=== PATIENT | male | born 1955 | race African-American/Black ===

== ENCOUNTER 2017-01-15 01:30 | Inpatient (IN) ==
--- NOTE | 2017-01-15 03:04 | Emergency Department Note ---
Colt Cifuentes Manpreet, am scribing for, and in the presence of, Neil Richard MD 02:58. Jose Manuel Cifuentes Robert M, MD, personally performed the services described in this documentation, ascribed by Lul Gregory in my presence, and it is both accurate and complete . Arrival - Arrival Chief Complaint: Non-Specific Stated Complaint: feel weak no taste in mouth loosing weight ED Nursing Triage Note: patient states for one week he has had no taste in his mouth, decreased appetite, nausea and constipation. Mode of Arrival: Ambulatory Limitations: No Limitations Source: Patient - History of Present Illness HPI Narrative: Pt is a 61 y/o male who presents to the ED with CC of dry mouth, weight loss, for the past week. Pt also c/o blurry vision and has only been eating ice. Pt denies fever but states an increase in urination frequency. No other pains/ complaints reported to ED. Onset (ago): week(s) Consistency: constant Severity: mild, moderate Severity scale (1-10): 3 Allergies/Adverse Reactions: Allergies Allergy/AdvReac Type Severity Reaction Status Date / Time No Known Allergies Allergy Verified 01/15/17 01:48 Home Medications: Home Medications Medication Instructions Recorded Confirmed Type Aspirin [Ecotrin] 81 mg PO DAILY 01/15/17 01/15/17 History Furosemide Tab [Lasix Tab] 80 mg PO DAILY 01/15/17 01/15/17 History Review of System - Review of System 12 point system: reviewed and no additional remarkable complaints except as stated - Review of System Constitutional: Present: weight loss, other (Loss of appetite). Absent: chills , diaphoresis, fever Eyes: Present: other (Blurry vision) Head/Ears/Nose/Throat: Present: other (Dry mouth) Respiratory: Absent: cough, respiratory distress Cardiovascular: Absent: chest pain Gastrointestinal: Absent: abdominal pain, nausea, vomiting Genitourinary male: Present: frequency. Absent: dysuria Medical,Surgical,& Family Hx - Medical History Cardio: History of: Hypertension - Social History Smoking Status: Never smoker Frequency of Alcohol Use: Occasionally Type of Drug Use: None Exam Vital Signs: Vital Signs Temperature 97.0 F L 01/15/17 01:43 Pulse Rate 84 01/15/17 01:43 Respiratory Rate 01/15/17 01:43 Blood Pressure 100/82 01/15/17 01:43 O2 Sat by Pulse Oximetry 97 01/15/17 01:43 - General General appearance: alert, in no apparent distress - Head Head exam: Present: atraumatic, normocephalic, normal inspection - Eye Eye exam: Present: normal appearance, PERRL, EOMI - ENT ENT exam: Present: normal exam, normal oropharynx, mucous membranes dry, TM's normal bilaterally. Absent: mucous membranes moist - Neck Neck exam: Present: normal inspection, full ROM, trachea midline. Absent: tenderness - Chest Chest inspection: Present: normal inspection, symmetric chest wall rise. Absent : tenderness - Respiratory Respiratory exam: Present: normal lung sounds bilaterally. Absent: accessory muscle use, respiratory distress - Cardiovascular Cardiovascular exam: Present: regular rate, normal rhythm, normal heart sounds. Absent: murmur, rubs, gallop - Abdominal Exam Abdominal exam: Present: soft, normal bowel sounds. Absent: distention, tenderness - Extremities Exam Extremities exam: Present: normal inspection, full ROM. Absent: tenderness - Back Exam Back exam: Present: normal inspection, full ROM. Absent: tenderness - Neurological Exam Neurological exam: Present: alert, oriented X3, CN II-XII intact - Psychiatric Psychiatric exam: Present: normal affect, normal mood - Skin Skin exam: Present: warm, dry, intact, normal color. Absent: pallor Course - Consultations Consultation #1: Dr. Isidro Monsalve will evaluate and admit the patient. Time: 04:25 Results - Labs CBC & BMP: 01/15/17 03:20 01/15/17 03:20 Lab Results: I have reviewed the patients labs Labs: Lab Results WBC 8.1 T/CUMM (4-12) 01/15/17 03:20 RBC 5.60 MC/CUMM (3.8-5.5) H 01/15/17 03:20 Hgb 14.1 GM/DL (14.0-18.0) 01/15/17 03:20 Hct 40.2 VOL% (42.0-52.0) L 01/15/17 03:20 MCV 71.8 FL (87-102) L 01/15/17 03:20 MCH 25 PG (27-34) L 01/15/17 03:20 MCHC 35.1 GM/DL (32-36) 01/15/17 03:20 RDW 13.9 % (9.3-17.3) 01/15/17 03:20 Plt Count 234 T/CUMM (130-400) 01/15/17 03:20 MPV 12.8 FL (9.6-12.0) H 01/15/17 03:20 Neut % (Auto) 68.2 % (38.7-73.9) 01/15/17 03:20 Lymph % (Auto) 23.3 % (21.2-54.2) 01/15/17 03:20 Hughes % (Auto) 6.9 % (1.7-12.7) 01/15/17 03:20 Eos % (Auto) 1.0 % (0.00-10.9) 01/15/17 03:20 Baso % (Auto) 0.2 % (0.0-0.8) 01/15/17 03:20 Neut # (Auto) 5.6 10*3/uL (1.4-7.4) 01/15/17 03:20 Lymph # (Auto) 1.9 10*3/uL (1.4-4.0) 01/15/17 03:20 Hughes # (Auto) 0.6 10*3/uL (0.11-0.8) 01/15/17 03:20 Eos # (Auto) 0.1 10*3/uL (0.0-0.87) 01/15/17 03:20 Baso # (Auto) 0.0 10*3/uL (0.0-0.2) 01/15/17 03:20 Immature Gran % 0.4 % 01/15/17 03:20 Nucleated RBC % 0.0 /100WBC 01/15/17 03:20 Immature Gran # 0.03 # 01/15/17 03:20 Nucleated RBCs # 0.00 10*3/uL 01/15/17 03:20 Sodium 124 MMOL/L (136-145) L 01/15/17 03:20 Potassium 6.1 MMOL/L (3.5-5.1) H* 01/15/17 03:20 Chloride 86 MMOL/L (98-107) L 01/15/17 03:20 Carbon Dioxide 25 MMOL/L (21-32) 01/15/17 03:20 Anion Gap 19.1 MMOL/L (5.0-15.0) H 01/15/17 03:20 BUN 42 MG/DL (7-18) H 01/15/17 03:20 Creatinine 2.40 MG/DL (0.70-1.30) H 01/15/17 03:20 GFR Calculation 35 ML/MIN 01/15/17 03:20 BUN/Creatinine Ratio 17.00 RATIO (6.00-20.00) 01/15/17 03:20 Glucose 1141 MG/DL (74-106) H* 01/15/17 03:20 Hemoglobin A1c 11.2 % (4.2-6.3) H 01/15/17 03:20 Calculated Osmolality 317.6 MOS/KG (273-304) H 01/15/17 03:20 Calcium 9.8 MG/DL (8.5-10.1) 01/15/17 03:20 Magnesium 3.5 MG/DL (1.8-2.4) H 01/15/17 03:20 Urine Color Colorless (Yellow) 01/15/17 03:30 Urine Appearance Clear (Clear) 01/15/17 03:30 Urine pH 5.0 (4.5-8.0) 01/15/17 03:30 Ur Specific Kidder 1.022 (1.001-1.035) 01/15/17 03:30 Urine Protein Negative MG/DL 01/15/17 03:30 Urine Glucose (UA) >=500 mg/dL (Negative) 01/15/17 03:30 Urine Ketones 5 mg/dL (Negative) 01/15/17 03:30 Urine Blood Small mg/dL (Negative) 01/15/17 03:30 Urine Nitrate Negative (Negative) 01/15/17 03:30 Urine Bilirubin Negative mg/dL (Negative) 01/15/17 03:30 Urine Urobilinogen < 2.0 EU/DL (0.2-1.0) H 01/15/17 03:30 Urine Leukocytes Negative Mike/ul (Negative) 01/15/17 03:30 Urine RBC <1 /HPF (0-4) 01/15/17 03:30 Urine WBC <1 /HPF (0-6) 01/15/17 03:30 Ur Squamous Epith Cells Occasional /HPF (0-10) 01/15/17 03:30 Ur Culture Indicated? Not indicated 01/15/17 03:30 Urine Opiates Screen Negative (Negative) 01/15/17 03:20 Ur Barbiturates Screen Negative (Negative) 01/15/17 03:20 Ur Phencyclidine Scrn Negative (Negative) 01/15/17 03:20 U Amphetamine/Methamph Negative (Negative) 01/15/17 03:20 U Benzodiazepines Scrn Negative (Negative) 01/15/17 03:20 U Cocaine Metab Screen Negative (Negative) 01/15/17 03:20 U Cannabinoids Screen Negative (Negative) 01/15/17 03:20 Disposition Clinical Impression: New onset type 1 diabetes mellitus, uncontrolled, Hyperkalemia Case discussed with: patient, patient's family Condition: Stable
[2017-01-15 03:38] LABS: Basophils % 0.2 % (0.0-0.8); Eosinophils # 0.1 10*3/uL (0.0-0.87); Hematocrit 40.2 VOL% (42.0-52.0); Hemoglobin 14.1 GM/DL (14.0-18.0); Immature Granulocytes % 0.4 %; Immature Granulocytes Absolute 0.03 #; Lymphocytes # 1.9 10*3/uL (1.4-4.0); Lymphocytes % 23.3 % (21.2-54.2); Mean Corpuscular HGB Conc 35.1 GM/DL (32-36); Mean Corpuscular Hemoglobin 25 PG (27-34); Mean Corpuscular Volume 71.8 FL (87-102); Mean Platelet Volume 12.8 FL (9.6-12.0); Monocytes # 0.6 10*3/uL (0.11-0.8); Monocytes % 6.9 % (1.7-12.7); Neutrophils # 5.6 10*3/uL (1.4-7.4); Neutrophils % 68.2 % (38.7-73.9); Platelet Count 234 T/CUMM (130-400); Red Cell Distribution Width 13.9 % (9.3-17.3); White Blood Count 8.1 T/CUMM (4-12)
[2017-01-15 03:42] LABS: Apearance,Urine CLEAR (Clear); Bilirubin,Urine Negative (Negative); Blood, Urine Small mg/dL (Negative); Glucose,Urine (UA) >=500 mg/dL (Negative); Ketones,Urine 5 mg/dL (Negative); Nitrite,Urine Negative (Negative); Protein,Urine Negative; RBC,Urine <1 /HPF (0-4); Squamous Epithelial Cell,Urine Occasional /HPF (0-10); Urine Color Colorless (Yellow); Urine Specific Gravity 1.022 (1.001-1.035); Urine Urobilinogen < 2.0 EU/DL (0.2-1.0); WBC,Urine <1 /HPF (0-6)
[2017-01-15 03:48] LABS: Barbiturates Screen,Urine Negative (Negative); Benzodiazepines Screen,Urine Negative (Negative); Cannabinoid Screen,Urine Negative (Negative); Opiate Screen,Urine Negative (Negative); Phencyclidine Screen,Urine Negative (Negative)
[2017-01-15 04:10] LABS: Calcium 9.8 MG/DL (8.5-10.1); Magnesium 3.5 MG/DL (1.8-2.4)
[2017-01-15 04:13] LABS: Osmolality,Calculated 317.6 MOS/KG (273-304)
[2017-01-15 04:17] LABS: Potassium 6.1 MMOL/L (3.5-5.1)
[2017-01-15] MEDS ORDERED: SODIUM CHLORIDE 0.9% 1,000 ML IV STA (04:23)
[2017-01-15] MEDS ORDERED: INSULIN LISPRO 100 UNIT/ML SUBCUT STA (04:23)
[2017-01-15] MEDS ORDERED: INSULIN LISPRO 100 UNIT/ML SUBCUT ONE (04:31)
--- NOTE | 2017-01-15 04:44 | Hospitalist History & Physical ---
Assessment and Plan (1) Diabetes mellitus, new onset Status: Acute Current Visit: Yes (2) Hyperglycemia Status: Acute Current Visit: Yes (3) Hyperosmolar non-ketotic state in patient with type 2 diabetes mellitus Status: Acute Current Visit: Yes (4) History of prostate cancer Status: Acute Current Visit: Yes (5) Hyperkalemia Status: Acute Assessment and plan: Patient definitely has an elevated glucose. He has hyperkalemia and a has a bicarb 25. Most likely this is nonketotic hyperosmolar state. I am going to order a beta hydroxy butyrate to be complete. The quickest way to get this sugar under control will be unit admission with IV insulin infusion with generous IV fluids and serial BMPs. Once we have better control of his sugar he should be able to be transferred out of the unit and to the floor. Will get breastfeeding educator to talk with him. I do not have a recent creatinine. I found one from 2004 which is 12 years ago and he had a creatinine of 1.1. I feel that his creatinine will improve with hydration Current Visit: Yes History of Present Illness Chief complaint: Increased thirst and urination History of present illness: Mr. Becerra is a 61 year old male with past medical history significant for coronary artery disease and prostate cancer presents to our ER carlos. Patient reports for the last several weeks he just lost the taste of food. He reports not hungry. He reports that everything is does not taste right. He says that he is noticed an increase in urination. And is been eating a lot of ice. He has had some nausea. He came to our hospital for further evaluation patient was found to have an elevated glucose in the 1100 range. I was consulted to admit him through the emergency room Home Medications Medication Instructions Recorded Confirmed Type Aspirin [Ecotrin] 81 mg PO DAILY 01/15/17 01/15/17 History Furosemide Tab [Lasix Tab] 80 mg PO DAILY 01/15/17 01/15/17 History Allergies Allergy/AdvReac Type Severity Reaction Status Date / Time No Known Allergies Allergy Verified 01/15/17 01:48 Medical,Surgical,& Family Hx - Medical History Cardio: History of: CAD, Hypertension Genitourinary: History of: Prostate Problems - Surgical History Reproductive Surgeries: Surgical HX of;: Prostate Surgery - Family History Family History: Reports;: Family Hypertension - Social History Smoking Status: Never smoker Frequency of Alcohol Use: Occasionally Type of Drug Use: None 12 point system: reviewed and no additional remarkable complaints except as stated Exam - Constitutional Vitals: Period Temp Pulse Resp BP Sys/Johnson Pulse Ox Last 24 Hr 97.0 F-97.0 F 84-84 16-20 100-100/82-82 97 General appearance: normal weight - Head Head exam: Present: normal inspection - Eye Eye exam: Present: EOMI Pupils: Present: MARVEL - ENT ENT exam: Present: normal exam - Neck Neck exam: Present: normal inspection - Respiratory Respiratory exam: Present: clear to auscultation bilaterally - Cardiovascular Cardiovascular exam: Present: regular rate and rhythm - GI/Abdominal GI/Abdominal exam: Present: normal bowel sounds - Extremities Exam Extremities exam: Present: normal inspection - Back Exam Back exam: Present: normal inspection - Neurological Exam Neurological exam: Present: alert, oriented X3 - Psychiatric Psychiatric exam: Present: normal affect - Skin Skin exam: Present: normal color Results - Labs CBC & BMP: 01/15/17 03:20 01/15/17 03:20
[2017-01-15] MEDS ORDERED: SODIUM PHOSPHATE IV PRN (04:55)
[2017-01-15] MEDS ORDERED: SODIUM CHLORIDE 0.9% IV PRN (04:55)
[2017-01-15] MEDS ORDERED: DEXTROSE 50% 25 GM/50 ML VIAL IV PRN ×2 (04:55)
[2017-01-15] MEDS ORDERED: ALBUTEROL 2.5 MG/3 ML NEB RESP TX PRN (04:55)
[2017-01-15] MEDS ORDERED: INSULIN REGULAR 100 UNIT/ML IV ONE ×2 (04:55→10:48)
[2017-01-15] MEDS ORDERED: MAGNESIUM SULF RIDER 4 GM in PREMIX 1 EACH IV PRN (04:55)
[2017-01-15] MEDS ORDERED: SODIUM BICARB INJ 100 MEQ in STERILE WATER INJ 400 ML IV PRN (04:55)
[2017-01-15] MEDS ORDERED: MAGNESIUM SULF RIDER 2 GM in PREMIX 1 EACH IV PRN (04:55)
[2017-01-15] MEDS ORDERED: SODIUM CHLORIDE 0.9% 1,000 ML IV ONE (04:55)
[2017-01-15] MEDS: INSULIN REGULAR DRIP 100 ML IV SCH (05:58)
[2017-01-15 06:39] LABS: Magnesium 3.5 MG/DL (1.8-2.4); Phosphorous 4.4 MG/DL (2.5-4.9)
[2017-01-15] MEDS: SODIUM CHLORIDE 0.9% 1,000 ML IV SCH ×2 (06:55→08:57)
[2017-01-15 07:08] LABS: Basophils % 0.3 % (0.0-0.8); Eosinophils # 0.1 10*3/uL (0.0-0.87); Hematocrit 36.8 VOL% (42.0-52.0); Immature Granulocytes % 0.3 %; Immature Granulocytes Absolute 0.02 #; Lymphocytes # 1.9 10*3/uL (1.4-4.0); Lymphocytes % 26.4 % (21.2-54.2); Mean Corpuscular HGB Conc 35.3 GM/DL (32-36); Mean Corpuscular Hemoglobin 25 PG (27-34); Mean Corpuscular Volume 71.5 FL (87-102); Mean Platelet Volume 12.7 FL (9.6-12.0); Monocytes # 0.4 10*3/uL (0.11-0.8); Monocytes % 5.7 % (1.7-12.7); Neutrophils # 4.7 10*3/uL (1.4-7.4); Neutrophils % 66.3 % (38.7-73.9); Platelet Count 238 T/CUMM (130-400); Red Blood Count 5.15 MC/CUMM (3.8-5.5); Red Cell Distribution Width 13.6 % (9.3-17.3)
[2017-01-15 07:39] LABS: Calcium 9.2 MG/DL (8.5-10.1); Potassium 3.8 MMOL/L (3.5-5.1)
--- NOTE | 2017-01-15 07:40 | XRay Report ---
History: Shortness of breath Date: 01/15/2017 Study: Chest x-ray AP Comparison exam: January 09, 2011 The cardiac silhouette is upper normal in size. The patient is status post prior median sternotomy and cardiac valve replacement. The cardiac silhouette is not enlarged. There is no pulmonary vascular engorgement. A left subclavian transvenous pacemaker/defibrillator device is intact and unchanged. There is some minor linear scar or subsegmental atelectasis in the left lung base. There is no anne pneumonia or gross pleural effusion. Osseous structures are unchanged. Impression: Minimal platelike scar or subsegmental atelectasis left lung base. No definite acute process compared to the previous study PROCEDURE INTERPRETED AT [facility] DEPARTMENT OF RADIOLOGY Final Report Signed by: Dr. Lawanda Powell
[2017-01-15] MEDS: POTASSIUM CHLORIDE RIDER 10 MEQ in PREMIX 1 EACH IV PRN ×2 (07:57→08:57)
--- NOTE | 2017-01-15 08:47 | Event Note ---
Patient is admitted with new onset diabetes with an elevated blood sugar greater than 1000. He is responding well to IV fluids and IV insulin. Diabetic education has been in to see him already this morning. He feels better. We will continue ICU level care and IV insulin drip with hourly Accu-Cheks and routine treatment for HHNK per protocol. The case was discussed with the nursing staff at the bedside.
[2017-01-15] MEDS: ENOXAPARIN 40 MG/0.4 ML SYRINGE SUBCUT SCH (09:06)
[2017-01-15] MEDS ORDERED: SODIUM CHLORIDE 0.9% 1,000 ML IV SCH (09:56)
[2017-01-15 11:30] LABS: Calcium 8.4 MG/DL (8.5-10.1); Osmolality,Calculated 304.3 MOS/KG (273-304); Potassium 4.5 MMOL/L (3.5-5.1)
[2017-01-15] MEDS ORDERED: SODIUM CHLOR 0.45% KCL 20 MEQ 20 MEQ/1,000 ML BAG IV SCH (15:30)
[2017-01-15 16:25] LABS: Calcium 8.4 MG/DL (8.5-10.1); Potassium 4.5 MMOL/L (3.5-5.1)
[2017-01-15] MEDS ORDERED: GLUCAGON 1 MG VIAL IM PRN ×2 (16:30)
[2017-01-15] MEDS: SODIUM CHLORIDE 0.45% 1,000 ML IV SCH (16:47)
[2017-01-15] MEDS: INSULIN LISPRO 100 UNIT/ML SUBCUT SCH ×2 (17:17→20:26)
[2017-01-15] MEDS: glyBURIDE 2.5 MG TABLET PO SCH (17:55)
[2017-01-15] MEDS ORDERED: INSULIN GLARGINE 100 UNIT/ML SUBCUT SCH (21:00)
[2017-01-16] MEDS: SODIUM CHLORIDE 0.45% 1,000 ML IV SCH ×2 (00:11→08:15)
[2017-01-16 04:47] LABS: Magnesium 2.3 MG/DL (1.8-2.4); Phosphorous 2.5 MG/DL (2.5-4.9)
[2017-01-16 04:52] LABS: Albumin 3.2 G/DL (3.4-5.0); Bilirubin,Total 0.6 MG/DL (0.2-1.0); Calcium 8.6 MG/DL (8.5-10.1); Total Protein 6.3 G/DL (6.4-8.3)
[2017-01-16 04:53] LABS: Osmolality,Calculated 287.7 MOS/KG (273-304); Potassium 4.5 MMOL/L (3.5-5.1)
[2017-01-16] MEDS: INSULIN REGULAR DRIP 100 ML IV SCH (05:17)
--- NOTE | 2017-01-16 08:03 | Physician Query Form ---
CLICK EDIT DOCUMENT TO SELECT QUERY ANSWER --> OK --> SIGN Melanie Richard RN, CCDS Certified Clinical Supervising Film Or Videotape Editor W) [phone] (f) [phone] [email or web address] PROVIDERS: Make your selection(s) from the choices in EACH section by typing an "x" and enter comments in the comment section. Please use your independent medical judgment in providing your response. This request does not imply that any particular answer is desired or expected. CLINICAL INDICATORS: (Providers should not edit this section) The medical record indicates that the patient was admitted with a new onset of DM, creatinine of 2.40 on the that has decreased to 1.30 on the , GFR of 35 on the that has increased to 82 on the and the patient was bloused with 1,000 cc of fluid then started on NS infusion. Clarify which of the following most accurately represents the patient's renal status: ( X) Acute kidney injury (non-traumatic) ( ) Acute renal failure ( ) Acute renal failure with underlying Chronic Kidney Disease (CKD) - please provide stage below ( ) Acute renal failure with pathological renal lesion ( ) Acute renal failure with necrosis ( ) tubular ( ) medullary ( ) cortical ( ) CKD - please provide stage below ( ) End Stage Renal Disease ( ) Acute interstitial nephritis ( ) Hepatorenal syndrome ( ) Other, please specify: ( ) Clinically unable to determine Chronic Kidney Disease Stages Source: National Kidney Disease Foundation ( ) Stage I (eGFR > or = 90) ( ) Stage II (eGFR 60 - 89) ( ) Stage III (eGFR 30 - 59) ( ) Stage IV (eGFR 15 - 29) ( ) Stage V (eGFR < 15 or dialysis) COMMENTS: PLEASE ALSO DOCUMENT RESPONSE IN PROGRESS NOTES AND/OR DISCHARGE SUMMARY Use of terms such as suspected, likely, or probable (associated with a specific diagnosis that is being evaluated, monitored, or treated as if it exists) are acceptable and can be restated in the discharge summary if not ruled out. MTDD
[2017-01-16] MEDS: glyBURIDE 2.5 MG TABLET PO SCH (08:27)
[2017-01-16] MEDS: INSULIN LISPRO 100 UNIT/ML SUBCUT SCH ×2 (08:27→12:23)
[2017-01-16] MEDS: ENOXAPARIN 40 MG/0.4 ML SYRINGE SUBCUT SCH (08:44)
--- NOTE | 2017-01-16 10:08 | Discharge Summary ---
Hospital Course - Hospital Course Hospital Course: Mr. Becerra is a 61-year-old black male who was admitted to the hospital with new onset diabetes and a markedly elevated blood sugar greater than 1000. He was admitted to the intensive care unit for IV fluid hydration and IV insulin therapy. He was seen in consultation by diabetic education. He also had acute kidney injury with acute renal failure and elevated creatinine which is improved with IV fluid hydration and correction of his metabolic derangements related to his new onset diabetes. His hemoglobin A1c was greater than 11. He has been started on metformin and glyburide as well as Lantus at night. He has received diabetic education. He is being discharged home in stable condition to follow-up with a new primary care physician. He was given instructions regarding glucometer use. New prescriptions for Lantus, metformin, glyburide were given. The rest of his home medications were reviewed and reconciled. Patient is a full code. - Time spent with patient Time with patient DS: Greater than 30 minutes (Total discharge time for this patient, including [id number] time, clinical documentation, medication reconciliation, and discharge planning was 42 minutes.) Diagnosis - Discharge Diagnosis (1) Acute kidney injury Status: Resolved (2) Hypertension Status: Chronic (3) Cardiomyopathy Status: Chronic (4) Diabetes mellitus, new onset Status: Acute (5) Hyperosmolar non-ketotic state in patient with type 2 diabetes mellitus Status: Resolved Discharge Plan - Discharge Data Disposition: Disch To Home/Self Care Condition at Discharge: Stable Discharge Diet: diabetic diet Activity: resume usual activities as tolerated Hygiene: no restrictions Weight Bearing at Discharge: full weight bearing Contact your physician if you experience:: fever over 101, Nausea/Vomiting - Discharge Medications New Insulin Glargine [Lantus] 10 unit SUBCUT BEDTIME #100 unit glyBURIDE [Diabeta] 5 mg PO BID W/MEALS #60 tablet metFORMIN [Glucophage] 500 mg PO BID W/MEALS #60 tablet Continue Furosemide Tab [Lasix Tab] 80 mg PO DAILY Aspirin [Ecotrin] 81 mg PO DAILY - Follow Up or Referral - Forms/Instructions Additional Discharge Instructions: Follow-up with primary care physician in 1-2 weeks. Follow diabetic education instructions. Check blood sugars twice daily and as needed. The patient has other home medications that should be continued without change. He was unable to provide us with a list. Exam - Constitutional Vitals: Period Temp Pulse Resp BP Sys/Johnson Pulse Ox Last 24 Hr 97.4 F-98.7 F 67-79 12-25 100-143/52-90 93-99 Discharge Results Labs on day of discharge: Labs from last 24 hours 01/16/17 01/16/17 01/16/17 07:10 03:42 03:42 Sodium 138 Potassium 4.5 Chloride 107 Carbon Dioxide 23 Anion Gap 12.5 BUN 20 H Creatinine 1.30 GFR Calculation 82 BUN/Creatinine Ratio 15.00 Glucose 285 H POC Glucose 313 H Calculated Osmolality 287.7 Calcium 8.6 Phosphorus 2.5 Magnesium 2.3 Total Bilirubin 0.60 AST 29 ALT 37 Alkaline Phosphatase 62 Total Protein 6.3 L Albumin 3.2 L Globulin 3.1 Albumin/Globulin Ratio 1.0 L 01/15/17 01/15/17 01/15/17 22:28 20:18 20:15 Sodium Potassium Chloride Carbon Dioxide Anion Gap BUN Creatinine GFR Calculation BUN/Creatinine Ratio Glucose POC Glucose 342 H 439 H 402 H Calculated Osmolality Calcium Phosphorus Magnesium Total Bilirubin AST ALT Alkaline Phosphatase Total Protein Albumin Globulin Albumin/Globulin Ratio 01/15/17 01/15/17 01/15/17 16:57 16:12 15:31 Sodium 143 Potassium 4.5 Chloride 112 H Carbon Dioxide 24 Anion Gap 11.5 BUN 26 H Creatinine 1.30 GFR Calculation 80 BUN/Creatinine Ratio 20.00 Glucose 254 H POC Glucose 200 H 222 H Calculated Osmolality 298.0 Calcium 8.4 L Phosphorus Magnesium Total Bilirubin AST ALT Alkaline Phosphatase Total Protein Albumin Globulin Albumin/Globulin Ratio 01/15/17 01/15/17 01/15/17 15:05 13:56 12:53 Sodium Potassium Chloride Carbon Dioxide Anion Gap BUN Creatinine GFR Calculation BUN/Creatinine Ratio Glucose POC Glucose 296 H 330 H 334 H Calculated Osmolality Calcium Phosphorus Magnesium Total Bilirubin AST ALT Alkaline Phosphatase Total Protein Albumin Globulin Albumin/Globulin Ratio 01/15/17 01/15/17 01/15/17 12:07 10:55 10:40 Sodium 141 Potassium 4.5 Chloride 109 H Carbon Dioxide 25 Anion Gap 11.5 BUN 31 H Creatinine 1.60 H GFR Calculation 62 BUN/Creatinine Ratio 19.00 Glucose 410 H POC Glucose 341 H 439 H Calculated Osmolality 304.3 H Calcium 8.4 L Phosphorus Magnesium Total Bilirubin AST ALT Alkaline Phosphatase Total Protein Albumin Globulin Albumin/Globulin Ratio 06/01/15/17 01/15/17 09:47 06:01 05:30 Sodium Potassium Chloride Carbon Dioxide Anion Gap BUN Creatinine GFR Calculation BUN/Creatinine Ratio Glucose Cancelled POC Glucose 431 H > 500 H* Calculated Osmolality Calcium Phosphorus Magnesium Total Bilirubin AST ALT Alkaline Phosphatase Total Protein Albumin Globulin Albumin/Globulin Ratio DS: Provider Date of admission: 01/15/17 04:56 Primary care physician: . No PCP Attending physician on admission: Isidro Monsalve MD Consults: 01/15/17 04:56 Consult to [facility], Educator [CONS] Routine Reason for Telephone Worker: Diabetes Education Initial Insulin Education Consult Comment: INSULIN EDUCATION Discharging clinician: Claire Stone MD Expected date of discharge: 01/16/17
[2017-01-16 13:02] VITALS: BP 144/77
[2017-01-16] MEDS ORDERED: metFORMIN 500 MG TABLET PO SCH (17:00)
[2017-01-16] MEDS ORDERED: glyBURIDE 5 MG TABLET PO SCH (17:00)
== END 2017-01-16 12:35 | disposition home or self-care (01) | DRG 638 ==
LOC: N.ED 01:30 → SUATTDRO 04:56 → N.EDINP 04:56 → N.ICU 05:40
PROVIDERS: ADMIT Internal Medicine; ATTEND Family Medicine